=== PATIENT | female | born 1965 | race Caucasian/White ===

== ENCOUNTER 2017-01-21 01:07 | Emergency (ER) | payer MEDICARE, MEDICAID ==
[2017-01-21 01:26] VITALS: BP 134/83
--- NOTE | 2017-01-21 01:44 | EDM.PDOC ---
ED HPI GENERAL MEDICAL PROBLEM - General Chief Complaint: General Stated Complaint: right side numbness chest pain nausea Time Seen by Provider: 01/21/17 01:20 Source of Information: Reports: Patient History Limitations: Reports: No Limitations - History of Present Illness INITIAL COMMENTS - FREE TEXT/NARRATIVE: According to patient she has been having swelling in her right leg for over a month, the swelling came on gradually, and she has been having pain in her right leg for past 2 days. pain is sharp and intermittent. and her whole right leg hurts. No redness or trauma. Does not hurt to walk. Also to night around 1 am she has chest tightness in her sleep and lasted for about 10 minutes and resolved by itself. Was not asso with chest pain, sweating , nausea or vomiting. Pt got concerned and came into emergency room. Presently she feels fine. Pt is on telemetry monitor and has been in sinus rhythm and asymptomatic. Onset: Today Severity: Mild Improves with: Reports: None Worsens with: Reports: None Associated Symptoms: Denies: Confusion, Chest Pain, Cough, Diaphoresis, Fever/ Chills, Headaches, Nausea/Vomiting, Rash, Shortness of Breath, Syncope - Related Data Allergies Allergy/AdvReac Type Severity Reaction Status Date / Time morphine Allergy Other Verified 01/21/17 01:43 Social & Family History - Tobacco Use Smoking Status *Q: Heavy Tobacco Smoker Years of Tobacco use: 42 Packs/Tins Daily: 0.5 Used Tobacco, but Quit: No Second Hand Smoke Exposure: No - Caffeine Use Caffeine Use: Reports: None - Recreational Drug Use Recreational Drug Use: No ED ROS GENERAL - Review of Systems Review Of Systems: See Below Constitutional: Denies: Fever, Chills, Fatigue, Night Sweats HEENT: Denies: Rhinitis, Sinus Problem, Throat Pain Respiratory: Denies: Cough, Sputum Cardiovascular: Denies: Chest Pain, Edema, Lightheadedness, Syncope GI/Abdominal: Denies: Abdominal Pain, Nausea, Vomiting : Denies: Dysuria, Flank Pain, Frequency Musculoskeletal: Reports: Leg Pain. Denies: Shoulder Pain, Joint Pain, Joint Swelling Skin: Denies: Cyanosis, Pruritis, Rash, Erythema Neurological: Reports: Pre-Existing Deficit (has had previous stroke with rigth sided residual facial drooping.). Denies: Confusion, Dizziness, Headache Psychiatric: Reports: Anxiety. Denies: Agitation ED EXAM, GENERAL - Physical Exam Exam: See Below Exam Limited By: No Limitations General Appearance: Alert, WD/WN, No Apparent Distress, Obese Eye Exam: Bilateral Eye: EOMI, PERRL Ears: Normal External Exam, Normal Canal, Hearing Grossly Normal, Normal TMs Ear Exam: Bilateral Ear: Auricle Normal, Canal Normal, TM normal Nose: Normal Inspection, Normal Mucosa, No Blood Throat/Mouth: Normal Inspection, Normal Lips, Normal Teeth, Normal Gums, Normal Oropharynx, Normal Voice, No Airway Compromise Head: Atraumatic, Normocephalic Neck: Normal Inspection, Supple, Non-Tender, Full Range of Motion Respiratory/Chest: No Respiratory Distress, Lungs Clear, Normal Breath Sounds, No Accessory Muscle Use, Chest Non-Tender Cardiovascular: Normal Peripheral Pulses, Regular Rate, Rhythm, No Edema, No Gallop, No JVD, No Murmur, No Rub Peripheral Pulses: 2+: Carotid (L), Carotid (R), Radial (L), Radial (R) GI/Abdominal: Normal Bowel Sounds, Soft, Non-Tender, No Organomegaly, No Distention, No Abnormal Bruit, No Mass Extremities: No Pedal Edema, Leg Pain (right leg mild tenderness to palpation over the posterior knee, no mass felt). No: Joint Swelling, Charis's Sign, Redness Neurological: Alert, Oriented, CN II-XII Intact, Normal Cognition, Normal Gait, Normal Reflexes, No Motor/Sensory Deficits, Other (mild residual right facial drooping) EKG INTERPRETATION EKG Date: 01/21/17 Rhythm: NSR Rate (beats/min): 76 [place]: normal P-wave: present QRS: normal ST-T: normal QT: normal Course - Vital Signs Text/Narrative:: Pt presents with right leg swelling and pain. with short episode of shortness of breath today for 10 minutes. On clinical exam i do not see any swelling of the right leg today. She has vague right knee pain in the popliteal fossa with no mass. Her EKG is in Normal sinus rhythm.CBC is Normal, CMP is normal. Troponin is negative and D-dimer is negative. I have reassured patient that she does not have any acute cardiac injury or any concern of clot in her leg or pulmonary embolism. Her SPO2 is 100 % on room air. she has non specific chronic right leg pain. Could be musculoskeletal. I have advised her to followup in clinic and have further workup done. Pt claims that she has one kidney. she takes naprosyn for pain. i have advised her not to use NSAIDS, which are common over the counter Naprosyn and advil, motrin group of medications. her renal function today appear normal with creat of 0.7 and BUN of 9. But on long run can cause decreased renal function. There is no contraindication to use of tylenol and her liver functions are , but she claims she cannot take tylenol for some reason. Her liver functions are normal and she is not on any medication which will interact with it tylenol.She needs to call her doctor and figure out what it is. There is no acute emergency asso with her symptoms at this point and she is hemodynamically stable to be worked up in the clinic for her chronic right leg swelling and pain. Last Recorded V/S: Last Vital Signs Temp 97.4 F 01/21/17 01:24 Pulse 95 01/21/17 01:24 Resp 18 01/21/17 01:24 BP 134/83 01/21/17 01:24 Pulse Ox 100 01/21/17 01:24 - Orders/Labs/Meds Orders: Active Orders 24 hr Category Date Time Status EKG Documentation Completion [RC] ASDIRECTED Care 01/21/17 01:36 Active Labs: Laboratory Tests 01/21/17 01/21/17 01/21/17 Range/Units 01:30 01:30 01:30 WBC 6.5 D (4.0-11.0) K/uL RBC 4.62 (3.80-5.80) M/uL Hgb 14.2 (11.5-16.5) g/dL Hct 42.5 (37.0-47.0) % MCV 92 (76-96) fL MCH 30.7 (27.0-32.0) pg MCHC 33.4 (31.0-35.0) g/dL RDW 13.3 (11.0-16.0) % Plt Count 232 (150-500) K/uL MPV 11.2 H (6.0-10.0) fL Neut % (Auto) 45.7 (45.0-70.0) % Lymph % (Auto) 42.1 H (20.0-40.0) % Arthur % (Auto) 10.4 H (3.0-10.0) % Eos % (Auto) 1.2 (1.0-5.0) % Baso % (Auto) 0.6 H (0.0-0.5) % Neut # (Auto) 2.95 (2.00-7.50) K/uL Lymph # (Auto) 2.72 (1.50-4.00) K/uL Arthur # (Auto) 0.67 (0.20-0.80) K/uL Eos # (Auto) 0.08 (0.04-0.40) K/uL Baso # (Auto) 0.04 (0.02-0.10) K/uL D-Dimer, Quantitative 111 (0-400) ng/mL Sodium 138 (136-145) mmol/L Potassium 4.1 (3.5-5.1) mmol/L Chloride 103 (98-107) mmol/L Carbon Dioxide 27.8 (21.0-32.0) mmol/L Anion Gap 11.3 (5.0-15.0) mmol/L BUN 9 (8-26) mg/dL Creatinine 0.74 (0.55-1.02) mg/dL Est Cr Clr Drug Dosing TNP Estimated GFR (MDRD) > 60 (>60) MLS/MIN BUN/Creatinine Ratio 12.2 (6-25) Glucose 130 H D (74-100) mg/dL Calcium 8.9 (8.5-10.1) mg/dL Total Bilirubin 0.4 D (0.0-1.0) mg/dL AST 23 (15-37) U/L ALT 41 (12-78) U/L Alkaline Phosphatase 103 (46-116) U/L Troponin I < 0.017 (0.000-0.060) ng/mL Total Protein 7.4 (6.4-8.2) g/dL Albumin 3.3 L (3.4-5.0) g/dL Globulin 4.1 (2.2-4.2) g/dL Albumin/Globulin Ratio 0.8 (0.8-2.0) Departure - Departure Time of Disposition: 02:45 Disposition: Home, Self-Care 01 Condition: fair Clinical Impression: Right leg pain, Chest tightness - Discharge Information Forms: ED Department Discharge Additional Instructions: Pt presents with right leg swelling and pain. with short episode of shortness of breath today for 10 minutes. On clinical exam i do not see any swelling of the right leg today. She has vague right knee pain in the popliteal fossa with no mass. Her EKG is in Normal sinus rhythm.CBC is Normal, CMP is normal. Troponin is negative and D-dimer is negative. I have reassured patient that she does not have any acute cardiac injury or any concern of clot in her leg or pulmonary embolism. Her SPO2 is 100 % on room air. she has non specific chronic right leg pain. Could be musculoskeletal. I have advised her to followup in clinic and have further workup done. Pt claims that she has one kidney. she takes naprosyn for pain. i have advised her not to use NSAIDS, which are common over the counter Naprosyn and advil, motrin group of medications. her renal function today appear normal with creat of 0.7 and BUN of 9. But on long run can cause decreased renal function. There is no contraindication to use of tylenol and her liver functions are , but she claims she cannot take tylenol for some reason. Her liver functions are normal and she is not on any medication which will interact with it tylenol.She needs to call her doctor and figure out what it is. There is no acute emergency asso with her symptoms at this point and she is hemodynamically stable to be worked up in the clinic for her chronic right leg swelling and pain. - Problem List & Annotations (1) Chest tightness SNOMED Code(s): 46043916 Code(s): R07.89 - OTHER CHEST PAIN Status: Acute Current Visit: Yes (2) Right leg pain SNOMED Code(s): 148758420 Code(s): M79.604 - PAIN IN RIGHT LEG Status: Acute Current Visit: Yes - Problem List Review Problem List Initiated/Reviewed/Updated: Yes - My Orders Last 24 Hours: My Active Orders 01/21/17 01:36 EKG Documentation Completion [RC] ASDIRECTED - Assessment/Plan Last 24 Hours: My Active Orders 01/21/17 01:36 EKG Documentation Completion [RC] ASDIRECTED Assessment:: Right leg pain with shortness of breath Plan: Pt presents with right leg swelling and pain. with short episode of shortness of breath today for 10 minutes. On clinical exam i do not see any swelling of the right leg today. She has vague right knee pain in the popliteal fossa with no mass. Her EKG is in Normal sinus rhythm.CBC is Normal, CMP is normal. Troponin is negative and D-dimer is negative. I have reassured patient that she does not have any acute cardiac injury or any concern of clot in her leg or pulmonary embolism. Her SPO2 is 100 % on room air. she has non specific chronic right leg pain. Could be musculoskeletal. I have advised her to followup in clinic and have further workup done. Pt claims that she has one kidney. she takes naprosyn for pain. i have advised her not to use NSAIDS, which are common over the counter Naprosyn and advil, motrin group of medications. her renal function today appear normal with creat of 0.7 and BUN of 9. But on long run can cause decreased renal function. There is no contraindication to use of tylenol and her liver functions are , but she claims she cannot take tylenol for some reason. Her liver functions are normal and she is not on any medication which will interact with it tylenol.She needs to call her doctor and figure out what it is. There is no acute emergency asso with her symptoms at this point and she is hemodynamically stable to be worked up in the clinic for her chronic right leg swelling and pain.
== END 2017-01-21 02:35 | disposition home or self-care (01) ==
LOC: LB.ED 01:07
DX: R07.89 Other chest pain (principal); M79.604 Pain in right leg; F17.210 Nicotine dependence, cigarettes, uncomplicated; Z88.5 Allergy status to narcotic agent
CPT/HCPCS: 36415; 80053; 84484; 85025; 85379; 93005; 99283; 99285-25

== ENCOUNTER 2025-07-03 05:39 | Emergency (ER) | payer SELFPAY ==
[2025-07-03] MEDS: Ondansetron 4 MG/2 ML SDV IVPUSH ONE (06:04)
[2025-07-03] MEDS ORDERED: Sodium Chloride 0.9% 10 ML Syringe FLUSH PRN (06:17)
[2025-07-03 06:24] LABS: BASOPHILS ABSOLUTE AUTO 0.02 K/uL (0.02-0.10); BASOPHILS PERCENT AUTO 0.3 % (0.0-0.5); EOSINOPHILS ABSOLUTE AUTO 0.08 K/uL (0.04-0.40); EOSINOPHILS PERCENT AUTO 1.2 % (1.0-5.0); LYMPHOCYTES ABSOLUTE AUTO 0.87 K/uL (1.50-4.00); LYMPHOCYTES PERCENT AUTO 13.2 % (20.0-40.0); MEAN PLATELET VOLUME 10.1 fL (6.0-10.0); MONOCYTES ABSOLUTE AUTO 0.88 K/uL (0.20-0.80); MONOCYTES PERCENT AUTO 13.4 % (3.0-10.0); NEUTROPHILS ABSOLUTE AUTO 4.74 K/uL (2.00-7.50); NEUTROPHILS PERCENT AUTO 71.9 % (45.0-70.0); PLATELET COUNT,PLT 147 K/uL (150-500); RED BLOOD CELL COUNT 4.50 M/uL (3.80-5.80); RED CELL DISTRIBUTION WIDTH 13.3 % (11.0-16.0); WHITE BLOOD CELL COUNT,WBC 6.6 K/uL (4.0-11.0)
[2025-07-03] MEDS: Ketorolac 15 MG/ML SDV IVPUSH ONE (06:38)
[2025-07-03 06:39] LABS: A/G RATIO 0.9 (0.8-2.0); ALANINE AMINOTRANSFERASE,ALT 45.0 U/L (12-78); ASPARTATE AMNIOTRANSFERASE,AST 26.0 U/L (15-37); BILIRUBIN TOTAL 0.5 mg/dL (0.0-1.0); BLOOD UREA NITROGEN,BUN 9.0 mg/dL (8-26); CARBON DIOXIDE,CO2 26.2 mmol/L (21.0-32.0); CHLORIDE,CL 104.0 mmol/L (98-107); CREATININE 0.76 mg/dL (0.55-1.02); EST CRCL DRUG DOSING (CG) 64.3 mL/min; ESTIMATED GFR 89.0 mL/min (>60); GLUCOSE RANDOM 143.0 mg/dL (74-100); POTASSIUM,K 4.1 mmol/L (3.5-5.1); PROTEIN TOTAL,TP 7.0 g/dL (6.4-8.2); SODIUM,NA 140.0 mmol/L (136-145)
[2025-07-03 06:49] VITALS: PULSE 110
[2025-07-03 07:29] LABS: GLUCOSE,URINE NEGATIVE (NEGATIVE); OCCULT BLOOD,URINE TRACE-LYSED (NEGATIVE)
[2025-07-03 07:39] LABS: APPEARANCE,URINE SLIGHTLY CLOUDY (CLEAR)
[2025-07-03 07:40] LABS: SQUAMOUS EPITHELIAL CELLS,UR OCCASIONAL /HPF
[2025-07-03] MEDS ORDERED: Prochlorperazine 5 MG in Sodium Chloride 0.9% 50 ML IV ONE (07:43)
[2025-07-03] MEDS: SUMAtriptan 6 MG/0.5 ML SDV SUBCUT ONE (07:48)
[2025-07-03] MEDS: Prochlorperazine 10 MG/2 ML SDV ONE (08:00)
[2025-07-03] MEDS: Prochlorperazine 10 MG/2 ML SDV IVPUSH ONE (08:01)
[2025-07-03] MEDS: Acetaminophen/HYDROcodone 325-5 MG Tab PO ONE (09:08)
[2025-07-03] MEDS: Magnesium Sulfat/D5W 1GM/100ML 1 GM in Premix Bag 1 BAG IV ONE (10:26)
[2025-07-03 12:14] VITALS: BP 136/67
== END 2025-07-03 13:15 | disposition home or self-care (01) ==
LOC: LB.ED 05:39 → MERGE 05:39 → LB.ED 13:15
DX: G43.909 Migraine, unspecified, not intractable, without status migrainosus (principal); K21.9 Gastro-esophageal reflux disease without esophagitis; J44.89 Other specified chronic obstructive pulmonary disease; E66.9 Obesity, unspecified; Z88.5 Allergy status to narcotic agent; Z79.890 Hormone replacement therapy; Z79.899 Other long term (current) drug therapy; Z90.49 Acquired absence of other specified parts of digestive tract; Z87.891 Personal history of nicotine dependence; Z68.41 Body mass index [BMI] 40.0-44.9, adult
CPT/HCPCS: 36415; 70450; 71045; 80053; 81001; 83735; 83880; 84484; 85025; 85379; 93005; 96361; 96365; 96372; 96375; 99284-25; A9270-GY; J0780; J1885; J2405; J3030; J3475; J7030